=== PATIENT | male | born 1960 | race Caucasian/White ===

== ENCOUNTER 2022-01-06 11:25 | Observation (INO) ==
--- NOTE | 2021-11-04 07:40 | History & Physical Report ---
Date of Service November 04, 2021 date of surgery: 11/06/21 Procedure: Right Total Knee Poly Exchange Surgeon: Ankit Clements Assessment & Plan (1) Painful total knee replacement, right: Plan: Further care discussed with patient and at this point in time he has jumped his post of his poly and has a locked knee. He would like to proceed with a poly exchange to his right total knee. Plan on discharge will be home with home health physical therapy. DVT prophylaxiswith TEDs, SCDs and will also place on aspirin 81 mg p.o. b.i.d. for a month postop. Patient will have follow up appointment in our office two weeks post op for staple/suture removal and re-evaluation. Patient otherwise has no other questions or concerns. The risks and benefits have been discussed including, but not limited to, risk of infection, nerve injury, stiffness, loss of motion, failure to improve, etc. Reasonable outcomes and options of treatment were discussed. An explanation of appropriate alternatives to the procedure that may be advantageous were discussed and their risks and benefits, as well as the risks and benefits of not proceeding with treatment. I offered to answer any additional inquiries concerning the treatment involved. All the patient's questions were answered. The patient is agreeable, understanding of the treatment plan and alternatives, and wishes to proceed with the treatment plan. Patient was seen in office on 11/03/21 and has a history of a right knee total joint replacement about ten years ago. Patient has jumped the post and has a locked knee. It is medically necessary that patient has right knee revision of total knee arthroplasty, poly change on 11/06/2021 at [facility]. This is medically necessary as patient will have a terrible outcome if he does not have surgery as soon as possible. Patient is also not able to walk correctly at this time due to his locked knee which is inhibiting his quality of life. History of Present Illness Chief Complaint: Right knee pain Primary Care Provider: Karthikeyan Palacio is a pleasant 60 year old male who presents for right knee pain. he is s/p Right TKA by Dr Clements in 2010 and did well until this recent episode. He was seen in office c/o right knee pain and locked knee. Patient states his pain started on 11/02/2021. Patient states he has a constant pop in his right knee and states he "feels like something is moving and not right". Allergies Allergy/AdvReac Type Severity Reaction Status Date / Time No Known Allergies Allergy Verified 11/03/21 16:24 Home Medications Medication Instructions Recorded Confirmed Type aspirin 81 mg tablet,delayed 81 mg PO QAM 11/03/21 11/03/21 History release (Aspirin Low Dose) xdhodcpi-spcfavyl-mckxw acid 400 1 tab PO QAM 11/03/21 11/03/21 History mcg-vit K 20 mcg-lycop 300 mcg tablet (Men's Multivitamin) Past Med/Surg History Medical History DJD (degenerative joint disease) of knee Lung nodule had PET scan done @ [place]--was found to benign in nature Osteoarthritis Surgical History History of arthroscopy of right knee History of colonoscopy History of tonsillectomy History of total left knee replacement (TKR) History of total right knee replacement (TKR) History of wisdom tooth extraction Hx of vasectomy Postvasectomy reversal Family History Other No family history of adverse response to anesthesia Social History Smoking Status: Never smoker Second Hand Exposure: No; Hx Alcohol Use: Yes Hx Substance Use: No Preferred Language: Indonesian Communication Ability: Effective Retail Merchandising Coordinator Required: No Beliefs That Will Affect Care: None Current Living Situation: Spouse and Family Current Living Situation Comment: Lives with and 9 yr old daughter Feels Safe at Home: Yes Assistive Devices: Brace/Splint/Immobilizer and Glasses Review of Systems Review of Systems: All systems reviewed & are unremarkable except as noted in HPI & below Constitutional: no fever, no chills and no sweats Respiratory: no cough and no dyspnea Cardiovascular: no chest pain, no dyspnea and no orthopnea Gastrointestinal: no abdominal pain, no nausea and no vomiting Musculoskeletal: as per Subjective / HPI Physical Exam Physical Exam: HT: 5ft 11in WT: 115kg Constitutional: WD/WN, vitals as above no acute distress Respiratory: normal respiratory effort, lungs clear to auscultation no respiratory distress, no labored breathing and does not use accessory muscles Cardiovascular: RRR, no murmur, no edema Gastrointestinal (Abdomen): normal bowel sounds, soft, nontender, no hepatosplenomegaly Musculoskeletal: Knee: + knee abnormal to inspection (RIGHT KNEE), + effusion (+1 effusion), + surgical incision (well healed portals), + limited ROM of knee (ROM 0/0/45), + joint line tenderness (medial joint line) and + Vasu's sign positive; no deformity, no skin erythema, no ecchymosis, no crepitation with k nee ROM, no valgus laxity, no varus laxity, anterior drawer test negative, Ayad's sign negative and pivot shift test negative Results & Data Results & Data ([facility]) Diagnostic Findings Radiographs reveal a cemented total knee replacement arthroplasty in acceptable position and alignment. No evidence of loosening or loss of fixation is noted. The patella is tracking well. ASSESSMENT: status post cemented posterior stabilized total knee replacement arthroplasty.
--- NOTE | 2021-11-04 09:11 | Anesthesiology Consultation ---
Date of Service November 04, 2021 Assessment & Plan (1) Encounter for pre-operative examination: Chart Review Chart Review: Acceptable Risk for Surgery (pending preop Covid testing results ) and Patient NOT seen in Pre Admission Testing -Due to procedure being knee revision- patient is not eligible for Same Day Joint Program Per letter of medical necessity 11/03/2021 = patient was seen in the office today with a history of right total knee joint replacement about 10 years ago. Patient has jumped the post and has a locked knee. It is medically necessary that patient has right knee revision of total knee arthroplasty, polyexchange on 11/06/2021 at [facility]. This is medically necessary as patient will have a terrible outcome if he does not have surgery soon as possible. Patient is also not able to walk correctly at this time due to his left knee which is inhibiting his quality of life. Per nursing assessment 11/03/2021, patient denies any recent travel. No known Covid infection in the past 90 days. Patient is fully vaccinated for Covid. No known Covid positive exposures or Covid related symptoms. Preop Covid testing scheduled 11/04/21= results pending History Surgery Operation Date: 11/06/21 12:25 Proposed Procedures p Right Total Knee Revision Arthroplasty Poly Exchange - Ankit Clements DO Height/Weight Height: 5 ft 11 in Weight: 115.666 kg Allergies Allergy/AdvReac Type Severity Reaction Status Date / Time No Known Allergies Allergy Verified 11/03/21 16:24 Medications Home Medications Medication Instructions Recorded Confirmed Last Taken aspirin 81 mg tablet,delayed 81 mg PO QAM 11/03/21 11/03/21 Unknown release (Aspirin Low Dose) oowhrowl-rdprnvgb-eehuv acid 400 1 tab PO QAM 11/03/21 11/03/21 Unknown mcg-vit K 20 mcg-lycop 300 mcg tablet (Men's Multivitamin) Past Medical History Medical History DJD (degenerative joint disease) of knee Lung nodule had PET scan done @ [place]--was found to benign in nature Osteoarthritis Past Family History Family History Other No family history of adverse response to anesthesia Past Surgical History Surgical History History of arthroscopy of right knee History of colonoscopy History of tonsillectomy History of total left knee replacement (TKR) History of total right knee replacement (TKR) History of wisdom tooth extraction Hx of vasectomy Postvasectomy reversal Social History Smoking Status: Never smoker Do You Dip or Chew Tobacco: No (quit 7 yrs ago) Hx Alcohol Use: Yes alcohol intake frequency: holidays/special occasions only Hx Substance Use: No substance use type: does not use Lab Results Anesthesia Preop Results Results Anesthesia Widget: WBC 9.08 K/uL (4.8-10.8) 11/04/21 Hgb 16.3 g/dL (14.0-18.0) 11/04/21 Hct 49.2 % (42-52) 11/04/21 Plt 253 K/uL (130-400) 11/04/21 Na 138 mmol/L (136-145) 11/04/21 K 4.2 mmol/L (3.5-5.1) 11/04/21 Cl 106 mmol/L (98-107) 11/04/21 CO2 28 mmol/L (21-32) 11/04/21 BUN 19 mg/dl (6-23) 11/04/21 Creat 0.90 mg/dl (0.6-1.4) 11/04/21 Glucose Level 86 mg/dl (70-99(Fasting)) 11/04/21 PT 10.1 Seconds (9.0-12.0) 11/04/21 PTT 30.2 Seconds (21.0-31.0) 11/04/21 INR 1.0 (0.9-1.1) 11/04/21 HA1c 5.3 % (4.5-5.6) 11/04/21 Urine Color Dark Yellow 11/04/21 Urine Appearance Clear (Clear) 11/04/21 Urine pH 7.0 (4.5-7.5) 11/04/21 Urine Specific [place] 1.018 (1.000-1.030) 11/04/21 Urine Protein Negative (Negative) 11/04/21 Urine Glucose (UA) Negative (Negative) 11/04/21 Urine Ketones Negative (Negative) 11/04/21 Urine Blood Negative (Negative) 11/04/21 Urine Nitrite Negative (Negative) 11/04/21 Urine Bilirubin Negative (Negative) 11/04/21 Urine Urobilinogen Negative (Negative) 11/04/21 Urine Leukocyte Esterase Negative (Negative) 11/04/21 Testing Electrocardiogram Date: 11/04/21 Findings: + no change from (Aug 20, 2016 per cardio ) Sinus bradycardia at 47 bpm. Otherwise normal EKG per cardio Chest X-Ray Date: 11/04/21 Findings: + NAD
--- NOTE | 2021-12-09 13:30 | History & Physical Report ---
Date of Service December 09, 2021 date of surgery: 12/15/21 Procedure: Right Total Knee Revision Arthroplasty with Poly Exchange Surgeon: Ankit Clements Assessment & Plan (1) Painful total knee replacement, right: Plan: Further care discussed with patient and at this point in time he has jumped his post of his poly and has a locked knee. He would like to proceed with a poly exchange to his right total knee. Plan on discharge will be home with home health physical therapy. DVT prophylaxiswith TEDs, SCDs and will also place on aspirin 81 mg p.o. b.i.d. for a month postop. Patient will have follow up appointment in our office two weeks post op for staple/suture removal and re- evaluation. Patient otherwise has no other questions or concerns. The risks and benefits have been discussed including, but not limited to, risk of infection, nerve injury, stiffness, loss of motion, failure to improve, etc. Reasonable outcomes and options of treatment were discussed. An explanation of appropriate alternatives to the procedure that may be advantageous were discus sed and their risks and benefits, as well as the risks and benefits of not proceeding with treatment. I offered to answer any additional inquiries concerning the treatment involved. All the patient's questions were answered. The patient is agreeable, understanding of the treatment plan and alternatives, and wishes to proceed with the treatment plan. History of Present Illness Chief Complaint: right knee pain Primary Care Provider: Sarkis Mehta DO Hakeem is a pleasant 61 year old male who presents for right knee pain. he is s/p Right TKA by Dr Clements in 2010 and did well until this recent episode. He was seen in office c/o right knee pain and locked knee. Patient states his pain started on 11/02/2021. Patient states he has a constant pop in his right knee and states he "feels like something is moving and not right". Allergies Allergy/AdvReac Type Severity Reaction Status Date / Time No Known Allergies Allergy Verified 11/03/21 16:24 Home Medications Medication Instructions Recorded Confirmed Type aspirin 81 mg tablet,delayed 81 mg PO QAM 11/03/21 11/03/21 History release (Aspirin Low Dose) baeoeuwk-tsfruskb-flsvx acid 400 1 tab PO QAM 11/03/21 11/03/21 History mcg-vit K 20 mcg-lycop 300 mcg tablet (Men's Multivitamin) Past Med/Surg History Medical History DJD (degenerative joint disease) of knee Lung nodule had PET scan done @ [place]--was found to benign in nature Osteoarthritis Surgical History History of arthroscopy of right knee History of colonoscopy History of tonsillectomy History of total left knee replacement (TKR) History of total right knee replacement (TKR) History of wisdom tooth extraction Hx of vasectomy Postvasectomy reversal Family History Other No family history of adverse response to anesthesia Social History Smoking Status: Never smoker Second Hand Exposure: No; Do You Dip or Chew Tobacco: No (quit 7 yrs ago); Tobacco Cessation Education Requested by Patient: No Hx Alcohol Use: Yes Hx Substance Use: No Preferred Language: Albanian Communication Ability: Effective Optometrist President/Practice Owner Required: No Beliefs That Will Affect Care: None Current Living Situation: Spouse and Family Current Living Situation Comment: Lives with and 9 yr old daughter Other Information That Helps Us Care for You: No Feels Safe at Home: Yes Safety Concerns: Feels Safe At This Time Assistive Devices: Brace/Splint/Immobilizer and Glasses Assistive Devices Comment: knee brace Review of Systems Constitutional: no fever, no chills and no sweats Respiratory: no cough and no dyspnea Cardiovascular: no chest pain, no dyspnea and no orthopnea Gastrointestinal: no abdominal pain, no nausea and no vomiting Musculoskeletal: as per Subjective / HPI Physical Exam Physical Exam: HT: 5ft 11in WT: 115kg Constitutional: WD/WN, vitals as above no acute distress Respiratory: normal respiratory effort, lungs clear to auscultation no respiratory distress, no labored breathing and does not use accessory muscles Cardiovascular: RRR, no murmur, no edema Gastrointestinal (Abdomen): normal bowel sounds, soft, nontender, no hepatosplenomegaly Musculoskeletal: Knee: + knee abnormal to inspection (RIGHT KNEE), + effusion (+1 effusion), + surgical incision (well healed portals), + limited ROM of knee (ROM 0/0/45), + joint line tenderness (medial joint line) and + Vasu's sign positive; no deformity, no skin erythema, no ecchymosis, no crepitation with knee ROM, no valgus laxity, no varus laxity, anterior drawer test negative, Ayad's sign negative and pivot shift test negative Results & Data Results & Data ([facility]) Diagnostic Findings Radiographs reveal a cemented total knee replacement arthroplasty in acceptable position and alignment. No evidence of loosening or loss of fixation is noted. The patella is tracking well. ASSESSMENT: status post cemented posterior stabilized total knee replacement arthroplasty.
[~2022-01-06 11:25] MED LIST: ACETAMINOPHEN 500 MG TAB PO SCH; BUPIVACAINE 0.25% 30 ML VIAL ONE; BUPIVACAINE 0.5 % 5 MG/1 ML PF 10ML VIAL ONE; CeleBREX 200 MG CAP PO SCH; DEXAMETHASONE SOD INJ 4 MG/ML VIAL ONE; EPINEPHrine INJ 1 MG/ML AMP ONE; FAMOTIDINE 20 MG TAB PO SCH; GABAPENTIN 600 MG DOSE PO SCH; LR 500ML BOLUS, THEN 15ML/HR IV SCH; METOCLOPRAMIDE HCL 10 MG TABLET PO SCH; MIDAZOLAM HCL 1 MG/ML 2ML VIAL ONE; ROPIVACAINE 0.5% HCL/PF 150 MG, BUPIVACAINE 0.75% MPF 20 ML, EPINEPHrine 30MG/30ML (OR ... INSTIL SCH; TRANEXAMIC ACID 1,000 MG **IV Intra-op IV SCH; TRANEXAMIC ACID 1,000 MG **IV Pre-op IV SCH; ceFAZolin 2000MG 2,000 MG/15 ML SYR IV SCH; dexAMETHasone 4 MG TAB PO SCH; fentaNYL citrate 100 MCG/2 ML VIAL ONE; oxyCODONE HCL 10 MG TABCR (OxyCONTIN) PO SCH
[2022-01-06] MEDS ORDERED: PHENYLEPHRINE HCL 10 MG/ML VIAL ONE (11:59)
--- NOTE | 2022-01-06 12:11 | History & Physical Bridge Note ---
Date of Service January 06, 2022 History & Physical Bridge Note I have examined the patient, reviewed the History & Physical and in the interval since the performance of the History & Physical I have noted the following changes of clinical significance: no changes noted
[2022-01-06 12:21] LABS: Basophils # (auto) 0.02 K/uL (0-0.2); Basophils % (auto) 0.2 %; Eosinophils # (auto) 0.17 K/uL (0-0.5); Eosinophils % (auto) 1.9 %; Hematocrit (blood only) 46.4 % (42-52); Hemoglobin 15.6 g/dL (14.0-18.0); Immature Granulocytes # (auto) 0.02 K/uL (0.00-0.02); Immature Granulocytes % (auto) 0.2 %; Lymphocytes # (auto) 2.36 K/uL (1.2-3.4); Lymphocytes % (auto) 25.8 %; Mean Corpuscular Hemoglobin 29.7 pg (25-34); Mean Corpuscular Volume 88.4 fL (80-100); Mean Platelet Volume 10.5 fL (7.4-10.4); Monocytes # (auto) 0.72 K/uL (0.11-0.59); Monocytes % (auto) 7.9 %; Neutrophils # (auto) 5.84 K/uL (1.4-6.5); Platelet Count 226 K/uL (130-400); RDW Coefficient of Variation 13.4 % (11.5-14.5); RDW Standard Deviation 43.7 fL (36.4-46.3); Red Blood Count 5.25 M/uL (4.7-6.1); White Blood Count 9.13 K/uL (4.8-10.8)
[2022-01-06 12:22] LABS: Mean Corpuscular Hgb Conc 33.6 g/dL (32-36)
[2022-01-06 12:35] LABS: INR 1.1 (0.9-1.1); Partial Thromboplastin Ratio 1.1; Partial Thromboplastin Time 29.1 Seconds (21.0-31.0); Prothrombin Time 11.5 Seconds (9.0-12.0)
[2022-01-06 12:37] LABS: BUN Creatinine Ratio 21.1 (10-20); Calcium 9.2 mg/dl (8.5-10.1); Creatinine Clr Calc Pharmacy 106.9 ml/min; Est GFR (African American) 99.7 ml/min; Est GFR (Non-African American) 86.1 ml/min; Potassium 4.2 mmol/L (3.5-5.1)
[2022-01-06] MEDS ORDERED: ORTHO JOINT ANESTHETIC ONE (12:45)
[2022-01-06] MEDS ORDERED: MIDAZOLAM HCL 1 MG/ML 2ML VIAL ONE (13:29)
[2022-01-06] MEDS ORDERED: ePHEDrine sulfate 50 MG/ML AMP IV PRN (13:30)
[2022-01-06] MEDS ORDERED: ATROPINE SULFATE 0.1 MG/ML 10ML SYR IV PRN (13:30)
[2022-01-06] MEDS ORDERED: fentaNYL citrate 100 MCG/2 ML VIAL IV PRN (13:30)
[2022-01-06] MEDS ORDERED: ONDANSETRON INJ 2 MG/ML 2 ML VIAL IV PRN ×2 (13:30→16:45)
[2022-01-06] MEDS ORDERED: PROPOFOL IV EMULSION 10 MG/ML 20 ML VIAL IV ONE (13:45)
[2022-01-06] MEDS ORDERED: LIDOCAINE 2% 2 ML VIAL/AMP(20MG/ML) INFIL ONE (13:45)
[2022-01-06] MEDS ORDERED: ePHEDrine sulfate 50 MG/ML SYR ONE (13:45)
[2022-01-06] MEDS ORDERED: ONDANSETRON INJ 2 MG/ML 2 ML VIAL ONE (13:45)
--- NOTE | 2022-01-06 14:06 | Operative Report ---
Post Operative Report Pre & Post Diagnosis Operation Date: 11/06/21 12:25 < broken tibial post right total knee arthroplasty data on this case meets the specified criteria> Operation Date: 01/06/22 12:50 Broken tibial pulse status post total knee arthroplastydata on this case meets the specified criteria> I identified the patient and participated in the time-out.: Yes Procedure Revision and change meant of tibial polyethylene upsized to a size 15 Operation Date: 11/06/21 12:25 <No data on this case meets the specified criteria> Operation Date: 01/06/22 12:50 <No data on this case meets the specified criteria> Surgeon Ankit Clements DO Holistic Nutritionist Jagdeep FORD Estimated Blood Loss 5 Findings Consistent with Post-Op Diagnosis Patient presents the pain instability after breaking his post jumping exposed has had ongoing pain disability for the last 2 months as of today presents for polychange Specimens Broken poly- Drains None Anesthesia Type MAC Spinal Regional Complications none Disposition Accompanied Patient To Recovery: No Disposition: Recovery Room Indications Patient presents with pain instability about his right knee had previous undergone a right total knee arthroplasty was doing well with no complaints until recently started having instability with jumping exposed and exam consistent that of a broken post instability from his poly which was verified time surgery today with a broken post Description of Procedure After initiation of of regional anesthesia the right lower extremity socially prepped draped sterile fashion surgeon's type utilizing standard anterior incision dissection was carried out a medial parapatellar incision was made the post was fragment of polywas laying in the anterior compartment was removed the tibia the tibial polywas removed the wound was irrigated a partial synovectomy was performed the wound having been thoroughly irrigated a size 13 polywas trialed and a subsequent size 15 polywas trialed gave excellent stability in both flexion extension mid flexion after performing a full range of motion as the wound was irrigated S of sterile saline solution the polywas changed to a size 15 poly the medial parapatellar was closed in 1 Vicryl subcu was closed 2-0 Vicryl skin was closed with 2-0 Vicryl 3-0 Vicryl and a running V lock a sterile compressive dressing was placed Due to the complex nature of the procedure, the entire surgery was performed with the operational assistance of Jeremias FORD The bakery assistant, under direct supervision, was involved in the actual performance of all aspects of the surgical procedure including hemostasis, tissue retraction and incision, instrument management, patient positioning, and wound closure. I attest to the content of the Intraoperative Record and any orders documented therein. Any exceptions are noted below.
--- NOTE | 2022-01-06 15:26 | Anesthesiology Progress Note ---
Date of Service January 06, 2022 Anesthesia Post Procedure Vital Signs Vital Signs: Temp Pulse Pulse Resp BP Pulse Ox 01/06/22 15:15 97.7 F 61 16 107/61 94 01/06/22 15:05 74 22 120/65 94 01/06/22 14:55 60 18 110/62 98 01/06/22 14:45 67 22 122/61 98 01/06/22 14:37 97.3 F L 68 16 104/53 L 98 01/06/22 12:01 98.1 F 58 L 18 151/81 H 97 Transfer of Care Handoff Completed per policy Notes Mental Status: alert / awake / arousable and participated in evaluation Patient Amnestic to Procedure: Yes Nausea / Vomiting: adequately controlled Pain: adequately controlled Airway Patency, RR, SpO2: stable & adequate BP & HR: stable & adequate Hydration State: stable & adequate Neuraxial Anesthesia: was administered and sensory block is resolving Anesthetic Complications: no major complications apparent and Pt Satisfied with anesthetic care
--- NOTE | 2022-01-06 16:29 | XRay Report ---
RIGHT KNEE 2 VIEWS History: Right total knee arthroplasty. Degenerative arthritis. Postop. FINDINGS: The patient is status post a right total knee arthroplasty. The hardware is intact. No frac ture or dislocation. Skin soo and surgical drains are in place. IMPRESSION: Right total knee arthroplasty. No evidence for hardware complication. ACT 112: Negative or not required by law. Electronically signed by: Matthew Armijo M.D. 01/06/2022 4:27 PM
[2022-01-06] MEDS ORDERED: NALOXONE HCL 0.4 MG/1 ML VIAL/CARP IV PRN (16:45)
[2022-01-06] MEDS ORDERED: oxyCODONE HCL IR 5 MG TAB (IMMEDIATE RELEASE) PO PRN (16:45)
[2022-01-06] MEDS ORDERED: HYDROmorphone INJ 0.5 MG/0.5 ML SYR IV PRN (16:45)
[2022-01-06] MEDS ORDERED: bisacodyL 10 MG SUPP PR PRN (16:45)
[2022-01-06] MEDS ORDERED: MAGNESIUM HYDROXIDE SUSP 30 ML UDC PO PRN (16:45)
[2022-01-06] MEDS: SODIUM CHLORIDE 0.9% 1000ML 1,000 ML IV SCH (17:38)
[2022-01-06] MEDS: ASPIRIN 81 MG ECTAB PO SCH (20:59)
[2022-01-06] MEDS: ceFAZolin 2000MG 2,000 MG/15 ML SYR IV SCH (20:59)
[2022-01-06] MEDS: DOCUSATE SODIUM 100 MG CAP PO SCH (20:59)
[2022-01-06] MEDS: ACETAMINOPHEN 500 MG TAB PO SCH (21:00)
[2022-01-06] MEDS ORDERED: SENNA 8.6 MG TAB PO SCH (21:00)
[2022-01-07] MEDS: ACETAMINOPHEN 500 MG TAB PO SCH (05:19)
[2022-01-07] MEDS: ceFAZolin 2000MG 2,000 MG/15 ML SYR IV SCH (05:19)
[2022-01-07] MEDS: SODIUM CHLORIDE 0.9% 1000ML 1,000 ML IV SCH (05:27)
[2022-01-07 06:59] LABS: Hematocrit (blood only) 40.7 % (42-52); Hemoglobin 14.2 g/dL (14.0-18.0); Mean Corpuscular Hemoglobin 30.3 pg (25-34); Mean Corpuscular Hgb Conc 34.9 g/dL (32-36); Mean Corpuscular Volume 86.8 fL (80-100); Mean Platelet Volume 10.5 fL (7.4-10.4); Platelet Count 225 K/uL (130-400); RDW Coefficient of Variation 13.3 % (11.5-14.5); RDW Standard Deviation 42.1 fL (36.4-46.3); Red Blood Count 4.69 M/uL (4.7-6.1); White Blood Count 11.74 K/uL (4.8-10.8)
[2022-01-07 07:37] LABS: BUN Creatinine Ratio 26.2 (10-20); Calcium 8.9 mg/dl (8.5-10.1); Creatinine Clr Calc Pharmacy 120.9 ml/min; Est GFR (African American) 109.5 ml/min; Est GFR (Non-African American) 94.5 ml/min; Potassium 4.4 mmol/L (3.5-5.1)
[2022-01-07] MEDS: DOCUSATE SODIUM 100 MG CAP PO SCH (08:27)
[2022-01-07] MEDS: ASPIRIN 81 MG ECTAB PO SCH (08:27)
--- NOTE | 2022-01-07 08:28 | Orthopedic Progress Note ---
Date of Service January 07, 2022 Assessment & Plan (1) Painful total knee replacement, right: Plan: POD 1 s/p Right TKA Polyethylene Bearing change. PT/OT protocols. Weightbearing as tolerated. DVT prophylaxis-aspirin p.o. twice daily, KVNG Welch management as written. DC planning-patient planning for outpatient PT upon discharge. Admission and Anticipated Discharge Date Admission Date: January 06, 2022 Subjective POD 1 Patient currently sitting up in bed awake and alert. No complaints this morning. Pain is controlled. Denies shortness of breath, chest pain, lightheadedness. Patient is hoping to go home today. Physical Exam Physical Exam: Dressings are clean, dry, and intact. Calves are soft and nontender. Neurovascular is intact. Toes are mobile. He has good dorsiflexion and plantarflexion of the right foot. Minimal HV drainage. Results & Data ([facility]) Vital Signs (Past 12 Hours) Vital Signs Temp Pulse Pulse Resp BP Pulse Ox 01/07/22 07:50 36.7 C 54 L 12 130/80 95 01/07/22 03:40 36.6 C 58 L 16 115/73 95 01/06/22 23:03 36.5 C 67 16 118/70 93 Laboratory Results Laboratory Results WBC 11.74 K/uL (4.8-10.8) H 01/07/22 06:34 RBC 4.69 M/uL (4.7-6.1) L 01/07/22 06:34 Hgb 14.2 g/dL (14.0-18.0) 01/07/22 06:34 Hct 40.7 % (42-52) L 01/07/22 06:34 MCV 86.8 fL (80-100) 01/07/22 06:34 MCH 30.3 pg (25-34) 01/07/22 06:34 MCHC 34.9 g/dL (32-36) 01/07/22 06:34 RDW Std Deviation 42.1 fL (36.4-46.3) 01/07/22 06:34 RDW Coeff of Nica 13.3 % (11.5-14.5) 01/07/22 06:34 Plt Count 225 K/uL (130-400) 01/07/22 06:34 MPV 10.5 fL (7.4-10.4) H 01/07/22 06:34 Immature Gran % (Auto) 0.2 % 01/06/22 12:08 Neut % (Auto) 64.0 % 01/06/22 12:08 Lymph % (Auto) 25.8 % 01/06/22 12:08 Ponce % (Auto) 7.9 % 01/06/22 12:08 Eos % (Auto) 1.9 % 01/06/22 12:08 Baso % (Auto) 0.2 % 01/06/22 12:08 Neut # (Auto) 5.84 K/uL (1.4-6.5) 01/06/22 12:08 Lymph # (Auto) 2.36 K/uL (1.2-3.4) 01/06/22 12:08 Ponce # (Auto) 0.72 K/uL (0.11-0.59) H 01/06/22 12:08 Eos # (Auto) 0.17 K/uL (0-0.5) 01/06/22 12:08 Baso # (Auto) 0.02 K/uL (0-0.2) 01/06/22 12:08 Immature Gran # (Auto) 0.02 K/uL (0.00-0.02) 01/06/22 12:08 PT 11.5 Seconds (9.0-12.0) 01/06/22 12:08 INR 1.1 (0.9-1.1) 01/06/22 12:08 APTT 29.1 Seconds (21.0-31.0) 01/06/22 12:08 PTT Ratio 1.1 01/06/22 12:08 Sodium 136 mmol/L (136-145) 01/07/22 06:34 Potassium 4.4 mmol/L (3.5-5.1) 01/07/22 06:34 Chloride 105 mmol/L (98-107) 01/07/22 06:34 Carbon Dioxide 26 mmol/L (21-32) 01/07/22 06:34 Anion Gap 5 (3-11) 01/07/22 06:34 BUN 22 mg/dl (6-23) 01/07/22 06:34 Creatinine 0.84 mg/dl (0.6-1.4) 01/07/22 06:34 Est Cr Clr Drug Dosing 120.9 ml/min 01/07/22 06:34 Est GFR ( Amer) 109.5 ml/min 01/07/22 06:34 Est GFR (Non-Af Amer) 94.5 ml/min 01/07/22 06:34 BUN/Creatinine Ratio 26.2 (10-20) H 01/07/22 06:34 Glucose 112 mg/dl (70-99(Fasting)) H 01/07/22 06:34 Calcium 8.9 mg/dl (8.5-10.1) 01/07/22 06:34 SARS-CoV-2, RNA, NAAT NEGATIVE (NEGATIVE) 01/06/22 Unknown Blood Type B Positive 01/06/22 12:08 Antibody Screen NEGATIVE 01/06/22 12:08 Impressions Knee X-Ray 01/06/22 15:07 RIGHT KNEE 2 VIEWS History: Right total knee arthroplasty. Degenerative arthritis. Postop. FINDINGS: The patient is status post a right total knee arthroplasty. The hardware is intact. No fracture or dislocation. Skin soo and surgical drains are in place. IMPRESSION: Right total knee arthroplasty. No evidence for hardware complication. ACT 112: Negative or not required by law. Electronically signed by: Matthew Armijo M.D. 01/06/2022 4:27 PM
[2022-01-07] MEDS ORDERED: MULTIVITAMIN TAB PO SCH (09:00)
--- NOTE | 2022-01-08 10:43 | Discharge Summary ---
Date of Service January 08, 2022 Admission HPI Per Admitting Provider Natalia is a pleasant 61 year old male who presents for right knee pain. he is s/p Right TKA by Dr Clements in 2010 and did well until this recent episode. He was seen in office c/o right knee pain and locked knee. Patient states his pain started on 11/02/2021. Patient states he has a constant pop in his right knee and states he "feels like something is moving and not right". Admission Exam Per Admitting Provider Physical Exam: HT: 5ft 11in WT: 115kg Constitutional: WD/WN, vitals as above no acute distress Respiratory: normal respiratory effort, lungs clear to auscultation no respiratory distress, no labored breathing and does not use accessory muscles Cardiovascular: RRR, no murmur, no edema Gastrointestinal (Abdomen): normal bowel sounds, soft, nontender, no hepatosplenomegaly Musculoskeletal: Knee: + knee abnormal to inspection (RIGHT KNEE), + effusion (+1 effusion), + surgical incision (well healed portals), + limited ROM of knee (ROM 0/0/45), + joint line tenderness (medial joint line) and + Vasu's sign positive; no deformity, no skin erythema, no ecchymosis, no crepitation with knee ROM, no valgus laxity, no varus laxity, anterior drawer test negative, Ayad's sign negative and pivot shift test negative Principal Diagnosis Right Broken Tibial Post Discharge Data Allergies Allergy/AdvReac Type Severity Reaction Status Date / Time No Known Allergies Allergy Verified 01/06/22 12:39 Procedures Performed Operation Date: 11/06/21 12:25 <No data on this case meets the specified criteria> Operation Date: 01/06/22 12:50 Actual Procedures p Right Total Knee Arthroplasty with Poly Exchange(Right) - Ankit Clements DO Ordered Studies 11/06/21 05:00 US - OR guided needle placemen Routine 12/15/21 05:00 US - OR guided needle placemen Routine 01/06/22 05:00 US - OR guided needle placemen Routine Hospital Course (1) Painful total knee replacement, right: Patient:NATALIA ANDERSON Admit Date:01/06/22 MR#:[id number] Att Phy:Ankit Clements,D.O. Acct ID:[id number] Mamta Phy:Sarkis Mehta DO Date:1960 Fam Phy: Age:61 Location:3E Sex:M Room/Bed:E322-1 cc: ~ *NOTICE TO RECEIVING CONSTITUTION PARTY/AGENCY This information is strictly Confidential and protected under [place] law. [place] law prohibits you from making any further disclosure of this information unless further disclosure is expressly permitted by the written consent of the person to whom it pertains or is authorized by law. A general authorization for the release of medical or other information is not sufficient for this purpose. Hospital accepts no responsibility if the information is made available to any other person, INCLUDING THE PATIENT. Date of Service January 07, 2022 Assessment & Plan (1) Painful total knee replacement, right: Plan: POD 1 s/p Right TKA Polyethylene Bearing change. PT/OT protocols. Weightbearing as tolerated. DVT prophylaxis-aspirin p.o. twice daily, SCDs, KVNG reno A management as written. DC planning-patient planning for outpatient PT upon discharge. Admission and Anticipated Discharge Date Admission Date: January 06, 2022 Subjective POD 1 Patient currently sitting up in bed awake and alert. No complaints this morning. Pain is controlled. Denies shortness of breath, chest pain, lightheadedness. Patient is hoping to go home today. Physical Exam Physical Exam: Dressings are clean, dry, and intact. Calves are soft and nontender. Neurovascular is intact. Toes are mobile. He has good dorsiflexion and plantarflexion of the right foot. Minimal HV drainage. Results & Data ([facility]) Vital Signs (Past 12 Hours) Vital Signs Temp Pulse Pulse Resp BP Pulse Ox 01/07/22 07:50 36.7 C 54 L 12 130/80 95 01/07/22 03:40 36.6 C 58 L 16 115/73 95 01/06/22 23:03 36.5 C 67 16 118/70 93 Laboratory Results Laboratory Results WBC 11.74 K/uL (4.8-10.8) H 01/07/22 06:34 RBC 4.69 M/uL (4.7-6.1) L 01/07/22 06:34 HgbE 14.2 g/dL (14.0-18.0) 01/07/22 06:34 Hct 40.7 % (42-52) L 01/07/22 06:34 MCV 86.8 fL (80-100) 01/07/22 06:34 MCH 30.3 pg (25-34) 01/07/22 06:34 MCHC 34.9 g/dL (32-36) 01/07/22 06:34 RDW Std Deviation 42.1 fL (36.4-46.3) 01/07/22 06:34 RDW Coeff of Nica 13.3 % (11.5-14.5) 01/07/22 06:34 Plt Count 225 K/uL (130-400) 01/07/22 06:34 MPV 10.5 fL (7.4-10.4) H 01/07/22 06:34 Immature Gran % (Auto) 0.2 % 01/06/22 12:08 Neut % (Auto) 64.0 % 01/06/22 12:08 Lymph % (Auto) 25.8 % 01/06/22 12:08 Ness % (Auto) 7.9 % 01/06/22 12:08 Eos % (Auto) 1.9 % 01/06/22 12:08 Baso % (Auto) 0.2 % 01/06/22 12:08 Neut # (Auto) 5.84 K/uL (1.4-6.5) 01/06/22 12:08 Lymph # (Auto) 2.36 K/uL (1.2-3.4) 01/06/22 12:08 Ness # (Auto) 0.72 K/uL (0.11-0.59) H 01/06/22 12:08 Eos # (Auto) 0.17 K/uL (0-0.5) 01/06/22 12:08 Baso # (Auto) 0.02 K/uL (0-0.2) 01/06/22 12:08 Immature Gran # (Auto) 0.02 K/uL (0.00-0.02) 01/06/22 12:08 PT 11.5 Seconds (9.0-12.0) 01/06/22 12:08 INR 1.1 (0.9-1.1) 01/06/22 12:08 APTT 29.1 Seconds (21.0-31.0) 01/06/22 12:08 PTT Ratio 1.1 01/06/22 12:08 Sodium 136 mmol/L (136-145) 01/07/22 06:34 Potassium 4.4 mmol/L (3.5-5.1) 01/07/22 06:34 Chloride 105 mmol/L (98-107) 01/07/22 06:34 Carbon Dioxide 26 mmol/L (21-32) 01/07/22 06:34 Anion Gap 5 (3-11) 01/07/22 06:34 BUN 22 mg/dl (6-23) 01/07/22 06:34 Creatinine 0.84 mg/dl (0.6-1.4) 01/07/22 06:34 Est Cr Clr Drug Dosing 120.9 ml/min 01/07/22 06:34 Est GFR ( Amer) 109.5 ml/min 01/07/22 06:34 Est GFR (Non-Af Amer) 94.5 ml/min 01/07/22 06:34 BUN/Creatinine Ratio 26.2 (10-20) H 01/07/22 06:34 Glucose 112 mg/dl (70-99(Fasting)) H 01/07/22 06:34 Calcium 8.9 mg/dl (8.5-10.1) 01/07/22 06:34 SARS-CoV-2, RNA, NAAT NEGATIVE (NEGATIVE) 01/06/22 Unknown Blood Type B Positive 01/06/22 12:08 Antibody Screen NEGATIVE 01/06/22 12:08 Impressions Knee X-Ray 01/06/22 15:07 RIGHT KNEE 2 VIEWS History: Right total knee arthroplasty. Degenerative arthritis. Postop. FINDINGS: The patient is status post a right total knee arthroplasty. The hardware is intact. No fracture or dislocation. Skin soo and surgical drains are in place. IMPRESSION: Right total knee arthroplasty. No evidence for hardware complication. ACT 112: Negative or not required by law. Total Time Total Time Spent Total Time Spent (In Minutes): 5 Discharge Plan Discharge Items Patient Disposition: Home - Self-Care Reason For Visit: Failed Right Total Knee Arthroplasty Discharge Diagnosis: Failed Right TKA Polyethylene Bearing Activity: Per Instructions section Weightbearing: Right weightbearing Weightbearing Comment: as tolerated with walker Non-emergency contact: Surgeon Call non-emergency contact if: your pain is not controlled, your temperature is above 101.5, your wound has increased redness and your wound has increased drainage Follow-up/Referrals: Ankit Clements DO [Surgeon] - 01/18/22 1:45 pm (Follow up in 10-14 days from the day of surgery) Sarkis Mehta DO [Primary Care Provider] - Diet: Regular Addtl Attending Provider Instructions: ACTIVITY RECOMMENDATIONS: SELF CARE INSTRUCTIONS AFTER TKA POLYETHYLENE BEARING CHANGE A. You may need to continue a physical therapy program after discharge from the hospital. There are several options available to you. Your doctor will assist you in selecting the best one for you. 1. An out-patient facility 2 to 3 times a week for therapy or home therapy. 2. Continue working on all exercises taught to you in the hospital. Your goals should be to increase bending of your knee to 90 degrees and beyond and to fully straighten your knee. B. You may progress at your own pace from walking with a walker or crutches to a cane; then to no assistive devices. C. Make walking a part of your daily routine. Be up as much as comfortable with rest periods throughout the day. Rest with leg elevation is very important. Use the ice wrap frequently for the first 3-4 weeks. D. There are no restrictions on activities. You may ride in a car, shop, participate in roller and all social activities. E. Wear the long elastic stockings (KVNG hose) 20 hours a day for 2 weeks after surgery. They can be removed several times a day for laundering and for a bath. F. You may shower, no tub baths until cleared by your doctor. SPECIAL CARE INSTRUCTIONS: VERY IMPORTANT TO READ AND REVIEW A. There are a few signs you need to watch for after you are home. Call [facility] [place] if you notice any of the followin. Increased severe knee pain. Some pain is expected especially when you exercise. 2. Increased swelling in your leg or knee; pain or swelling of the calf muscle in either lower leg. 3. Any fluid drainage from the incision. 4. Shortness of breath or chest pain. B. Please call [facility] [place] at if you have any concerns or questions about your operation or recovery. The doctor or his nurse will return your call promptly. C. You must take antibiotics before dental work, bladder, bowel or other surgery. Your doctor will provide you with a permanent care to carry describing this precaution. IMPORTANT: * REMEMBER TO TAKE ASPIRIN, 81 MG, TWICE DAILY FOR 4 WEEKS UNLESS OTHERWISE DIRECTED. THIS IS YOUR BLOOD THINNER. * CALL IF INCREASED PAIN, REDNESS, DRAINAGE OR FEVER GREATER THAT 101. * WEAR KVNG HOSE 20 HOURS PER DAY FOR 2 WEEKS. * CAMILO Dressing - This is a large suction dressing covering your incision. This will help pull any excess drainage from the wound and allow your incision to heal properly. You may shower with this if you can keep the unit outside of the shower. If any bleeding or leakage is noted please call your doctor's office. This will remain on your incision for 7 days and then should be removed. This can be done yourself or by the home nursing staff if applicable. The entire unit is disposable once removed. Once removed, keep incision clean and dry. If redness or drainage is noted, please call your surgeon. . FOLLOW UP VISIT: If appointment is not already scheduled: Please call [facility] [place] to make a follow-up appointment for 2 weeks after your surgery at . Stand-Alone Forms: My [facility], Smoking Cessation Medications and DC Order Prescriptions: New aspirin [Ecotrin Low Strength] 81 mg tablet,delayed release (DR/EC) 81 mg PO BID 30 Days Qty: 60 RF: 0 cefadroxil 500 mg capsule 500 mg PO BID Qty: 14 RF: 0 acetaminophen 500 mg capsule 1,000 mg PO Q8H 14 Days Qty: 84 RF: 0 oxycodone 5 mg Tablet 5 mg PO Q4H MDD 6 PRN (Reason: pain) Qty: 30 RF: 0 Continued Men's Multivitamin 400-20-300 mcg Tablet 1 tab PO QAM RF: 0 Discontinued aspirin [Aspirin Low Dose] 81 mg Tablet,Delayed Release (Dr/Ec) 81 mg PO QAM RF: 0 Discharge Orders: Discharge Order (Routine); Ordered 01/07/22 Ordered By: Jagdeep Schultz Admission Data Admit Date/Time: 01/06/22 15:07 Attending Provider: Ankit Clements Admit Provider: Ankit Clements Primary Care Provider: Sarkis Mehta Other Interventions: Discharge Summary Assessment (RN) Last Done: 01/07/22 10:36
== END 2022-01-07 11:57 | disposition home or self-care (01) ==
LOC: PACUINP 11:25 → ASU 11:25 → 3E 16:40
DX: M19.90 Unspecified osteoarthritis, unspecified site; Z79.82 Long term (current) use of aspirin; T84.092A Other mechanical complication of internal right knee prosthesis, initial encounter